=== PATIENT | female | born 1990 | race Caucasian/White ===

== ENCOUNTER 2017-11-29 17:30 | Inpatient (IN) | payer OTHER ==
[~2017-11-29] VITALS: Ht 160 cm; Wt 99.9 kg
[~2017-11-29 17:30] MED LIST: MOTRIN800 MG PO; ~No Medications
[2017-11-29 18:29] LABS: HEMATOCRIT 41.1 % (36.0-46.0); HEMOGLOBIN 14.2 G/DL (11.9-15.5); MCH 31.6 PG (29.0-34.0); MCHC 34.5 G/DL (30.0-36.0); MCV 91.3 FL (83-99); PLATELET COUNT 317 K/uL (156-360); RBC DIS.WIDTH-CV 12.9 % (11.8-14.6); RBC DIS.WIDTH-SD 43.1 % (39-53)
[2017-11-29 18:40] LABS: CHLORIDE 101 mEq/L (99-109); POTASSIUM 3.8 mEq/L (3.7-5.4); SODIUM 135 mEq/L (136-147)
[2017-11-29 18:42] LABS: GLUCOSE 121 mg/dL (70-99)
[2017-11-29 18:46] LABS: CREATININE 0.8 mg/dL (0.6-1.3); GFR ESTIMATE (CALCULATED) > 59 mL/min/
[2017-11-29 18:47] LABS: UREA NITROGEN (BUN) 7 mg/dL (9-23)
[2017-11-29 18:56] LABS: QUANTITATIVE HCG < 4.0 MIU/ML
[2017-11-29] MEDS ORDERED: CENTRUM SILVER1 EAC4 PO (20:27)
[2017-11-29] MEDS ORDERED: TYLENOL COLD &1 EACH PO (20:29)
[2017-11-29 20:42] LABS: APPEARANCE CLEAR ((CLEAR)); BILIRUBIN NEGATIVE; BLOOD MODERATE; COLOR STRAW ((YELLOW)); GLUCOSE (STRIP) NEGATIVE; KETONES NEGATIVE; LEUKOCYTES TRACE; NITRITE NEGATIVE; PROTEIN (STRIP) NEGATIVE; SPECIFIC GRAVITY 1.042 (1.000-1.030); UROBILINOGEN 0.2 MG/DL (0.2-1.0)
[2017-11-29 20:53] LABS: BACTERIA RARE /HPF; EPITHELIAL CELLS 2+ /HPF; MUCUS NONE SEEN /LPF; RED BLOOD CELLS 0-5 /HPF (0-5); UCUL ADDED? YES
[2017-11-29 23:15] VITALS: BP 126/68
[2017-11-30 03:43] LABS: HEMATOCRIT 34.6 % (36.0-46.0); MCH 31.6 PG (29.0-34.0); MCHC 33.8 G/DL (30.0-36.0); MCV 93.5 FL (83-99); PLATELET COUNT 242 K/uL (156-360); RBC DIS.WIDTH-CV 13.3 % (11.8-14.6); RBC DIS.WIDTH-SD 45.1 % (39-53); WHITE BLOOD COUNT 12.4 K/uL (4.1-10.2)
[2017-11-30 03:44] LABS: HEMOGLOBIN 11.7 G/DL (11.9-15.5)
[2017-11-30 03:51] LABS: CHLORIDE 108 mEq/L (99-109); POTASSIUM 3.4 mEq/L (3.7-5.4); SODIUM 139 mEq/L (136-147)
[2017-11-30 03:52] LABS: GLUCOSE 110 mg/dL (70-99)
[2017-11-30 03:55] VITALS: BP 115/55
[2017-11-30 03:56] LABS: CREATININE 0.7 mg/dL (0.6-1.3); GFR ESTIMATE (CALCULATED) > 59 mL/min/
[2017-11-30 03:57] LABS: UREA NITROGEN (BUN) 7 mg/dL (9-23)
[2017-11-30 08:26] VITALS: BP 123/73
[2017-11-30 12:14] VITALS: BP 124/63
[2017-11-30 16:04] VITALS: BP 121/76
[2017-11-30 19:59] VITALS: BP 126/73
[2017-11-30 23:45] VITALS: BP 107/58
[2017-12-01 04:34] VITALS: BP 123/59
[2017-12-01 06:19] LABS: HEMATOCRIT 39.7 % (36.0-46.0); HEMOGLOBIN 12.8 G/DL (11.9-15.5); MCH 30.7 PG (29.0-34.0); MCHC 32.2 G/DL (30.0-36.0); MCV 95.2 FL (83-99); PLATELET COUNT 266 K/uL (156-360); RBC DIS.WIDTH-CV 13.8 % (11.8-14.6); RBC DIS.WIDTH-SD 48.9 % (39-53); RED BLOOD COUNT 4.17 M/uL (3.80-5.20); WHITE BLOOD COUNT 8.1 K/uL (4.1-10.2)
[2017-12-01 08:13] VITALS: BP 114/65
[2017-12-01 08:19] LABS: CHLORIDE 108 MEQ/L (99-109); CREATININE 0.6 MG/DL (0.6-1.3); GFR ESTIMATE (CALCULATED) > 59 mL/min/; GLUCOSE 85 mg/dL (70-99); MAGNESIUM 2.2 mg/dl (1.3-2.7); SODIUM 140 MEQ/L (136-147); UREA NITROGEN (BUN) 8 mg/dL (9-23)
[2017-12-01 08:21] LABS: POTASSIUM 4.3 MEQ/L (3.7-5.4)
[2017-12-01] MEDS ORDERED: LEVAQUIN750 MG PO (09:37)
[2017-12-01 13:20] VITALS: BP 128/78
== END 2017-12-01 13:19 | disposition home or self-care (01) | DRG 871 ==
LOC: EME 17:30 → EDOF 21:34 → 3EAST 21:34 → ENRESERV 21:37 → 3EAST 23:15
PROVIDERS: Hospitalist; Internal Medicine; Physician Assistant
DX: A41.9 Sepsis, unspecified organism (principal); J15.9 Unspecified bacterial pneumonia; J45.909 Unspecified asthma, uncomplicated; Z68.39 Body mass index [BMI] 39.0-39.9, adult; R09.02 Hypoxemia
CPT/HCPCS: 71046; 71275; 80048; 80048 91; 81003; 83605; 83735; 84702; 85027; 85379; 87040; 87077; 87086; 87502; 93005; 94640; 94640 76; 94799; 99202; 99281; 99285; J0456; J0696; J1650; J7030